=== PATIENT | male | born 1985 | race Caucasian/White ===

== ENCOUNTER 2020-01-04 12:16 | Inpatient (IN) | payer OTHER ==
--- NOTE | 2020-01-04 16:52 | BHS.RME ---
Substance Use & Tx History - Substance Use History Opiates (Other) Substance amount: oxycontin- 30mg tabs- 3-6tabs/day Frequency of use: Daily Substance route: Oral, Inhalation (ex: sniffing or snorting) Cocaine (Powder) Substance amount: 2 grams /week Frequency of use: Less than 3 times per week Date of Last Use: 01/02/20 - Last Treatment Date of last treatment: [facility]- and will start suboxone after detox Treatment type: Substance Use Disorder (MINISTERIO) Physical/Psych/Mental Status - Behavior General Behavior: Increased activity (restlessness, agitation) Eye Contact: Normal - Cooperativeness Cooperativeness: Cooperative, Friendly - Thinking Thought Processes: Goal Directed Thought content: Future oriented - Physical Health Problems Is patient presently having any pain?: No Does patient presently have any injuries (include location): No COWS - Scale Resting Pulse: 0= [place] 80 or Below Sweatin= Chills/Flushing Restless Observation: 1= Difficult to Sit Still Pupil Size: 1= Pupils >than Normal Bone or Joint Aches: 1= Mild Discomfort Runny Nose/ Eye Tearin= Nasal Congestion GI Upset > 30mins: 1= Stomach Cramp Tremor Observation: 1= Tremor [place], Not Seen Yawning Observation: 1= 1-2x During Session Anxiety or Irritability: 1=Feels Anxious/Irritable Goose Flesh Skin: 0=Smooth Skin COWS Score: 9 Treatment Recommendation - Level of Care Level of Care: Acute Medical (admit for opioid detox- pt will start suboxone after detox)
--- NOTE | 2020-01-04 18:58 | HP ---
COWS - Scale Resting Pulse: 0= [place] 80 or Below Sweatin= Chills/Flushing Restless Observation: 1= Difficult to Sit Still Pupil Size: 1= Pupils >than Normal Bone or Joint Aches: 2= Severe Diffuse Aches Runny Nose/ Eye Tearin= Runny Nose/Eyes GI Upset > 30mins: 2= Nausea/Diarrhea Tremor Observation: 2= Slight Tremor Visible Yawning Observation: 1= 1-2x During Session Anxiety or Irritability: 2=Irritable/Anxious Goose Flesh Skin: 0=Smooth Skin COWS Score: 14 CIWA Score - Admission Criteria OASAS Guidelines: Admission for Medically Managed Detox: Requires at least one of the followin. CIWA greater than 12 2. Seizures within the past 24 hours 3. Delirium tremens within the past 24 hours 4. Hallucinations within the past 24 hours 5. Acute intervention needed for co occurring medical disorder 6. Acute intervention needed for co occurring psychiatric disorder 7. Severe withdrawal that cannot be handled at a lower level of care (continued vomiting, continued diarrhea, abnormal vital signs) requiring intravenous medication and/or fluids 8. Admitting History and Physical - Admission Chief Complaint: i need help to stop using oxycontin History of Present Illness: this 34 years old with opioid dependence,oxycontine,denied seizure,no syncope History Source: Patient Limitations to Obtaining History: No Limitations - Past Medical History Gastrointestinal: Yes: Other (hernia surgery bilateral at age 8,left,age 15 right right 5th metacarpal surgery at age 26) Admission ROS [facility] - [facility] Chief Complaint: i need help to stop using oxycontin Allergies/Adverse Reactions: Allergies Allergy/AdvReac Type Severity Reaction Status Date / Time No Known Allergies Allergy Verified 01/04/20 18:59 History of Present Illness: this 4 years old male with oxycontin dependence,seeking detox,never been in detox before, denied seizure no syncope surgery for inguinal hernia left 8,right 15 fx of 5thmetacrpal head at age of 26 fx of nose Exam Limitations: No Limitations - Ebola screening Have you traveled outside of the country in the last 21 days: No Have you had contact with anyone from an Ebola affected area: No Have you been sick,other than usual withdrawal symptoms: No Do you have a fever: No - Review of Systems Constitutional: Malaise, Night Sweats, Changes in sleep, Weakness EENT: reports: Tearing, Nose Congestion Respiratory: reports: No Symptoms reported Cardiac: reports: No Symptoms Reported GI: reports: Diarrhea, Nausea, Vomiting, Abdominal cramping : reports: No Symptoms Reported Musculoskeletal: reports: Back Pain, Joint Pain, Muscle Pain Integumentary: reports: Dryness Neuro: reports: Headache, Tremors Endocrine: reports: No Symptoms Reported Hematology: reports: No Symptoms Reported Psychiatric: reports: No Sypmtoms Reported, Judgement Intact, Mood/Affect Appropiate, Orientated x3 Patient History - Patient Medical History Hx Anemia: No Hx Asthma: No Hx Chronic Obstructive Pulmonary Disease (COPD): No Hx Cancer: No Hx Cardiac Disorders: No Hx Congestive Heart Failure: No Hx Hypercholesterolemia: No Hx Pacemaker: No HX Cerebrovascular Accident: No Hx Seizures: No Hx Dementia: No Hx Diabetes: No Hx Gastrointestinal Disorders: Yes (hernia surgery left inguinal age 8 years, right 15 years inguinal) Hx Liver Disease: No Hx Genitourinary Disorders: No Hx Sexually Transmitted Disorders: No Hx Renal Disease (ESRD): No Hx Thyroid Disease: No Hx Human Immunodeficiency Virus (HIV): No (last 2017 negative) Hx Hepatitis C: No Hx Depression: No Hx Suicide Attempt: No Hx Bipolar Disorder: No Hx Schizophrenia: No Other Medical History: no suicidal,no homicidal,surgery of right 5th metacarpal head - Patient Surgical History Past Surgical History: Yes Hx Abdominal Surgery: Yes (inguinal herinia left age 8,right age 15) Hx Orthopedic Surgery: Yes (fx right 5th metacarpal head age 26) Other Surgical History: fx of nose age 30 - PPD History Previous Implant?: Yes Documented Results: Negative w/o proof Implanted On Prior R Admission?: No PPD to be Administered?: Yes - Smoking Cessation Smoking history: Current every day smoker Have you smoked in the past 12 months: Yes Aproximately how many cigarettes per day: 5 Cigars Per Day: 0 Hx Chewing Tobacco Use: No Initiated information on smoking cessation: Yes 'Breaking Loose' booklet given: 01/04/20 - Substance & Tx. History Hx Alcohol Use: No Hx Substance Use: Yes Substance Use Type: Opiates Hx Substance Use Treatment: No - Substances abused Other Other (specify): oxycodone Substance route: Oral Frequency: Daily Amount used: 150 to 300 mgs Age of first use: 15 Date of last use: 01/04/20 Cocaine Substance route: Inhalation Frequency: 1-2 times per week Amount used: 100$ Age of first use: 22 Date of last use: 01/02/20 Admission Physical Exam [facility] - Physical General Appearance: Yes: Moderate Distress, Tremorous, Irritable, Sweating, Anxious HEENTM: Yes: Normal ENT Inspection, BILL, Pharynx Normal Respiratory: Yes: Within Normal Limits, Lungs Clear, Normal Breath Sounds Neck: Yes: Within Normal Limits, Supple, Trachea in good position Breast: Yes: Within Normal Limits Cardiology: Yes: Within Normal Limits, Regular Rhythm, Regular Rate, S1, S2 Abdominal: Yes: Within Normal Limits, Normal Bowel Sounds, Flat, Soft Genitourinary: Yes: Within Normal Limits Back: Yes: Within Normal Limits Musculoskeletal: Yes: full range of Motion, Back pain, Muscle Pain Extremities: Yes: Tremors 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
[2020-01-04] MEDS ORDERED: MENTHOL/PHENOL 1 EACH UD MM PRN (19:14)
[2020-01-04] MEDS ORDERED: NICOTINE POLACRILEX 2 MG GUM BUC PRN (19:14)
[2020-01-04] MEDS ORDERED: hydrOXYzine PAMOATE 25 MG CAPSULE (FP) PO PRN (19:14)
[2020-01-04] MEDS ORDERED: MAGNESIUM HYDROX 2400MG/30ML ORAL SUSPENSION 30 ML CUP PO PRN (19:14)
[2020-01-04] MEDS ORDERED: MAGNESIUM CITRATE 300 ML BOTTLE PO PRN (19:14)
[2020-01-04] MEDS ORDERED: MAG HYDROX/AL HYDROX/SIMETH 30 ML UNIT-DOSE CUP PO PRN (19:14)
[2020-01-04] MEDS ORDERED: IBUPROFEN 400 MG TABLET (FP) PO PRN (19:14)
[2020-01-04] MEDS ORDERED: METHOCARBAMOL 500 MG TABLET PO PRN (19:14)
[2020-01-04] MEDS ORDERED: BISMUTH SUBSALICYLATE 524 MG/30 ML UD PO PRN (19:14)
[2020-01-04] MEDS ORDERED: cloNIDine HCL 0.1 MG TABLET PO PRN (19:14)
[2020-01-04] MEDS ORDERED: ACETAMINOPHEN 325 MG TABLET (FP) PO PRN ×2 (19:14)
[2020-01-04 19:39] VITALS: BMI 24.7
[2020-01-04] MEDS ORDERED: METHADONE HCL 10 MG TABLET (FOR DETOX USE ONLY) PO ONE (20:00)
[2020-01-04] MEDS: NICOTINE 21 MG/24 HOURS TOPICAL PATCH TD SCH (20:36)
[2020-01-04] MEDS: THIAMINE HCL 100 MG TABLET (FP) PO SCH (21:30)
[2020-01-04] MEDS: MELATONIN 5 MG TABLETS PO PRN (23:37)
[2020-01-05] MEDS ORDERED: METHADONE HCL 5 MG TABLET (FOR DETOX USE ONLY) PO ONE (10:00)
[2020-01-05] MEDS: PRENATAL VITAMINS W/ FOLIC ACID TABLET (FP) PO SCH (10:29)
[2020-01-05] MEDS: NICOTINE 21 MG/24 HOURS TOPICAL PATCH TD SCH (10:30)
[2020-01-05 11:44] LABS: HEMATOCRIT 40.2 % (35.4-49); HEMOGLOBIN 13.7 GM/dL (11.7-16.9); MCH 30.3 pg (25.7-33.7); MCHC 34.1 g/dl (32.0-35.9); MEAN CELL VOLUME 88.9 fl (80-96); MEAN PLT VOLUME 9.5 fl (7.5-11.1); PLATELET COUNT 204 K/MM3 (134-434); RBC 4.52 M/mm3 (4.00-5.60); RDW 13.4 % (11.9-15.9); WHITE BLOOD COUNT 9.7 K/mm3 (4.0-10.0)
[2020-01-05 11:54] LABS: ALBUMIN 3.7 g/dl (3.4-5.0); BILIRUBIN,TOTAL 0.2 mg/dL (0.2-1); BLOOD UREA NITROGEN 13.7 mg/dL (7-18); POTASSIUM 3.9 mmol/L (3.5-5.1); TOT PROT 6.6 g/dl (6.4-8.2)
--- NOTE | 2020-01-05 13:07 | PN ---
BHS COWS - Scale Resting Pulse: 0= [place] 80 or Below Sweatin= Chills/Flushing Restless Observation: 1= Difficult to Sit Still Pupil Size: 0= Normal to Room Light Bone or Joint Aches: 2= Severe Diffuse Aches Runny Nose/ Eye Tearin= None GI Upset > 30mins: 2= Nausea/Diarrhea Tremor Observation of Outstretched Hands: 2= Slight Tremor Visible Yawning Observation: 0= None Anxiety or Irritability: 2=Irritable/Anxious Goose Flesh Skin: 0=Smooth Skin COWS Score: 10 BHS Progress Note (SOAP) Subjective: Patient admitted for opiod withdrawal sx. Complains of chills, sweats, nausea, and anxiety. Objective: 01/05/20 13:06 Laboratory Tests 01/05/20 01/05/20 07:25 07:25 WBC 9.7 RBC 4.52 Hgb 13.7 Hct 40.2 MCV 88.9 MCH 30.3 MCHC 34.1 RDW 13.4 Plt Count 204 MPV 9.5 Sodium 143 Potassium 3.9 Chloride 111 H Carbon Dioxide 28 Anion Gap 5 L BUN 13.7 Creatinine 1.0 Est GFR (CKD-EPI)AfAm 114.11 Est GFR (CKD-EPI)NonAf 98.45 Random Glucose 96 Calcium 9.0 Total Bilirubin 0.2 AST 13 L ALT 22 Alkaline Phosphatase 55 Total Protein 6.6 Albumin 3.7 Vital Signs Temperature 97.7 F 01/05/20 11:46 Pulse Rate 66 01/05/20 11:46 Respiratory Rate 18 01/05/20 11:46 Blood Pressure 122/73 01/05/20 11:46 O2 Sat by Pulse Oximetry (%) PE alert and oriented x 3 skin warm, moist +perrla, eoms intact bl gi nt, nd ext full rom, amb ad ritika anxious Assessment: 01/05/20 13:07 opiod withdrawal sx Plan: continue detox
[2020-01-05] MEDS: diazePAM 5 MG TABLET PO PRN ×3 (13:53→22:12)
[2020-01-05] MEDS: THIAMINE HCL 100 MG TABLET (FP) PO SCH (22:13)
[2020-01-05] MEDS: MELATONIN 5 MG TABLETS PO PRN (22:13)
[2020-01-06] MEDS: diazePAM 5 MG TABLET PO PRN ×4 (03:31→22:09)
[2020-01-06] MEDS ORDERED: METHADONE HCL 10 MG TABLET (FOR DETOX USE ONLY) PO ONE (10:00)
[2020-01-06] MEDS: NICOTINE 21 MG/24 HOURS TOPICAL PATCH TD SCH (10:25)
[2020-01-06] MEDS: PRENATAL VITAMINS W/ FOLIC ACID TABLET (FP) PO SCH (10:25)
--- NOTE | 2020-01-06 10:30 | EKG ---
Test Reason : Blood Pressure : / mmHG Vent. Rate : 067 BPM Atrial Rate : 067 BPM P-R Int : 128 ms QRS Dur : 106 ms QT Int : 406 ms P-R-T Axes : 049 027 023 degrees QTc Int : 429 ms NORMAL SINUS RHYTHM rSr' V1-V2 NORMAL ECG NO PREVIOUS ECGS AVAILABLE Confirmed by Vernell Ghosh ([id number]) on 01/06/2020 10:29:35 AM Referred By: IGOR BELL Confirmed By:Vernell Ghosh
--- NOTE | 2020-01-06 13:54 | PN ---
BHS COWS - Scale Resting Pulse: 0= [place] 80 or Below Sweatin= Chills/Flushing Restless Observation: 1= Difficult to Sit Still Pupil Size: 1= Pupils >than Normal Bone or Joint Aches: 1= Mild Discomfort Runny Nose/ Eye Tearin= Runny Nose/Eyes GI Upset > 30mins: 2= Nausea/Diarrhea Tremor Observation of Outstretched Hands: 1= Tremor [place], Not Seen Yawning Observation: 1= 1-2x During Session Anxiety or Irritability: 2=Irritable/Anxious Goose Flesh Skin: 0=Smooth Skin COWS Score: 12 S Progress Note (SOAP) Subjective: alert,irritable,anxious,pain in the body and back Objective: 01/06/20 13:52 Vital Signs Temperature 96.8 F L 01/06/20 09:11 Pulse Rate 56 L 01/06/20 09:11 Respiratory Rate 16 01/06/20 09:11 Blood Pressure 122/76 01/06/20 09:11 O2 Sat by Pulse Oximetry (%) Laboratory Last Values WBC 9.7 K/mm3 (4.0-10.0) 01/05/20 07:25 RBC 4.52 M/mm3 (4.00-5.60) 01/05/20 07:25 Hgb 13.7 GM/dL (11.7-16.9) 01/05/20 07:25 Hct 40.2 % (35.4-49) 01/05/20 07:25 MCV 88.9 fl (80-96) 01/05/20 07:25 MCH 30.3 pg (25.7-33.7) 01/05/20 07:25 MCHC 34.1 g/dl (32.0-35.9) 01/05/20 07:25 RDW 13.4 % (11.9-15.9) 01/05/20 07:25 Plt Count 204 K/MM3 (134-434) 01/05/20 07:25 MPV 9.5 fl (7.5-11.1) 01/05/20 07:25 Sodium 143 mmol/L (136-145) 01/05/20 07:25 Potassium 3.9 mmol/L (3.5-5.1) 01/05/20 07:25 Chloride 111 mmol/L (98-107) H 01/05/20 07:25 Carbon Dioxide 28 mmol/L (21-32) 01/05/20 07:25 Anion Gap 5 MMOL/L (8-16) L 01/05/20 07:25 BUN 13.7 mg/dL (7-18) 01/05/20 07:25 Creatinine 1.0 mg/dL (0.55-1.3) 01/05/20 07:25 Est GFR (CKD-EPI)AfAm 114.11 01/05/20 07:25 Est GFR (CKD-EPI)NonAf 98.45 01/05/20 07:25 Random Glucose 96 mg/dL (74-106) 01/05/20 07:25 Calcium 9.0 mg/dL (8.5-10.1) 01/05/20 07:25 Total Bilirubin 0.2 mg/dL (0.2-1) 01/05/20 07:25 AST 13 U/L (15-37) L 01/05/20 07:25 ALT 22 U/L (13-61) 01/05/20 07:25 Alkaline Phosphatase 55 U/L (45-117) 01/05/20 07:25 Total Protein 6.6 g/dl (6.4-8.2) 01/05/20 07:25 Albumin 3.7 g/dl (3.4-5.0) 01/05/20 07:25 RPR Titer Nonreactive (NONREACTIVE) 01/05/20 07:25 Assessment: 01/06/20 13:53 withdrawal symptom Plan: continue detox methadone regime
[2020-01-06] MEDS: MELATONIN 5 MG TABLETS PO PRN (22:09)
[2020-01-06] MEDS: THIAMINE HCL 100 MG TABLET (FP) PO SCH (22:09)
[2020-01-07] MEDS ORDERED: METHADONE HCL 5 MG TABLET (FOR DETOX USE ONLY) PO ONE (06:00)
--- NOTE | 2020-01-07 09:04 | PN ---
[facility] CIWA - CIWA Score Nausea/Vomitin-No Nausea/No Vomiting Muscle Tremors: 1-None Visible, but [place] Anxiety: 1-Mildly Anxious Agitation: 1-Slight > Activity Paroxysmal Sweats: No Perspiration Orientation: 0-Oriented Tacttile Disturbances: 0-None Auditory Disturbances: 0-None Visual Disturbances: 0-None Headache: 0-None Present CIWA-Ar Total Score: 3 BHS Progress Note (SOAP) Subjective: alert,nocomplaint Objective: 01/07/20 09:03 Vital Signs Temperature 97.7 F 01/07/20 05:00 Pulse Rate 53 L 01/07/20 05:00 Respiratory Rate 18 01/07/20 06:35 Blood Pressure 109/63 01/07/20 05:00 O2 Sat by Pulse Oximetry (%) Assessment: 01/07/20 09:03 detox completed,no withdrawal symptom Plan: discharge today,follow up with after care program as arrangement
--- NOTE | 2020-01-07 09:07 | DS ---
[facility] Detox Discharge Summary Admission Date: 01/04/20 Discharge Date: 01/07/20 - History Present History: Cocaine Dependence, Opioid Dependence Additional Comments: alert,oriented x 3 ambulation on the unit hear normal heart sound lung clear,no wheezing no abdominal pain stable for discharge time spending for discharge 30 minutes Pertinent Past History: nicotine dependence - Physical Exam Results Vital Signs: Vital Signs Temperature 97.7 F 01/07/20 05:00 Pulse Rate 53 L 01/07/20 05:00 Respiratory Rate 18 01/07/20 06:35 Blood Pressure 109/63 01/07/20 05:00 O2 Sat by Pulse Oximetry (%) Pertinent Admission Physical Exam Findings: withdrawal signs and symptom Laboratory Last Values WBC 9.7 K/mm3 (4.0-10.0) 01/05/20 07:25 RBC 4.52 M/mm3 (4.00-5.60) 01/05/20 07:25 Hgb 13.7 GM/dL (11.7-16.9) 01/05/20 07:25 Hct 40.2 % (35.4-49) 01/05/20 07:25 MCV 88.9 fl (80-96) 01/05/20 07:25 MCH 30.3 pg (25.7-33.7) 01/05/20 07:25 MCHC 34.1 g/dl (32.0-35.9) 01/05/20 07:25 RDW 13.4 % (11.9-15.9) 01/05/20 07:25 Plt Count 204 K/MM3 (134-434) 01/05/20 07:25 MPV 9.5 fl (7.5-11.1) 01/05/20 07:25 Sodium 143 mmol/L (136-145) 01/05/20 07:25 Potassium 3.9 mmol/L (3.5-5.1) 01/05/20 07:25 Chloride 111 mmol/L (98-107) H 01/05/20 07:25 Carbon Dioxide 28 mmol/L (21-32) 01/05/20 07:25 Anion Gap 5 MMOL/L (8-16) L 01/05/20 07:25 BUN 13.7 mg/dL (7-18) 01/05/20 07:25 Creatinine 1.0 mg/dL (0.55-1.3) 01/05/20 07:25 Est GFR (CKD-EPI)AfAm 114.11 01/05/20 07:25 Est GFR (CKD-EPI)NonAf 98.45 01/05/20 07:25 Random Glucose 96 mg/dL (74-106) 01/05/20 07:25 Calcium 9.0 mg/dL (8.5-10.1) 01/05/20 07:25 Total Bilirubin 0.2 mg/dL (0.2-1) 01/05/20 07:25 AST 13 U/L (15-37) L 01/05/20 07:25 ALT 22 U/L (13-61) 01/05/20 07:25 Alkaline Phosphatase 55 U/L (45-117) 01/05/20 07:25 Total Protein 6.6 g/dl (6.4-8.2) 01/05/20 07:25 Albumin 3.7 g/dl (3.4-5.0) 01/05/20 07:25 RPR Titer Nonreactive (NONREACTIVE) 01/05/20 07:25 - Treatment Hospital Course: Detox Protocol Followed, Detoxed Safely, Responded well, Discharged Condition Good Patient has Accepted a Rehab Referral to: declined - Medication Discharge Medications: Ambulatory Orders NK [No Known Home Medication] 01/04/20 - Diagnosis (1) Opioid dependence with withdrawal Current Visit: Yes Status: Acute (2) Nicotine dependence Current Visit: Yes Status: Acute (3) Cocaine dependence Current Visit: Yes Status: Acute - AMA Did Patient Leave Against Medical Advice: No
[2020-01-07 09:48] VITALS: BP 134/74; PULSE 59; TEMP 98.1
== END 2020-01-07 09:06 | disposition home or self-care (01) | DRG 897 ==
LOC: YASAS 12:16 → Y6N 19:44
PROVIDERS: ADMIT Allergy & Immunology; ATTEND Allergy & Immunology
PROC: HZ2ZZZZ Detoxification Services for Substance Abuse Treatment (ICD-10-PCS; principal; 2020-01-04)
DX: F11.23 Opioid dependence with withdrawal (principal); F14.20 Cocaine dependence, uncomplicated; F17.210 Nicotine dependence, cigarettes, uncomplicated
CPT/HCPCS: 36415; 80053; 85027; 86593; 93005; 93010; J0735